=== PATIENT | male | born 1940 | race Caucasian/White ===

== ENCOUNTER 2018-05-11 20:44 | Inpatient (IN) | payer OTHER ==
[~2018-05-11] VITALS: Ht 175.3 cm; Wt 81.2 kg
[2018-05-11] MEDS ORDERED: SOD CHLORIDE 0.9% 1,000 ML IV STA (21:25)
--- NOTE | 2018-05-11 22:02 | ERD ---
ER Documentation Chief Complaint Chief Complaint PT BEGAN FALLING 2 WEEKS AGO; SEVERAL FALLS TODAY, HEAD/ NECK PAIN HPI 78-year-old man began having abrupt onset of loss of balance about 3 weeks ago, he is also had about 3 months of posterior neck pain. His loss of balance is daily and constant he has difficulty walking and has fallen multiple times, his PMD initially ordered x-ray studies but then the patient got a second opinion and recommendation was for outpatient MRI. MRI was scheduled today although he missed the appointment because he fell. Patient denies slurred speech, no weakness in his upper or lower extremities, no fevers or chills, no vomiting or diarrhea, no complaints of chest pain or shortness of breath. Patient had no URI or flu symptoms last month and has had no new medications, although he does use oxazepam and diazepam daily times 20 years ROS All systems reviewed and are negative except as per history of present illness. Allergies Allergies: Coded Allergies: No Known Allergy (Unverified , 05/11/18) PMhx/Soc Anxiety, hypertension, arthritis, ?COPD History of Surgery: Yes (left leg) Anesthesia Reaction: No Hx Neurological Disorder: No Hx Respiratory Disorders: No Hx Cardiac Disorders: Yes (HTN, Hyperlipidemia) Hx Psychiatric Problems: Yes (Anxiety, depression) Hx Miscellaneous Medical Probl: Yes (DM) Hx Alcohol Use: Yes (Occasional) Hx Substance Use: No Hx Tobacco Use: Yes Smoking Status: Current some day smoker FmHx Family History: No diabetes Physical Exam Vitals Vital Signs Date Temp Pulse Resp B/P (MAP) Pulse Ox O2 O2 Flow FiO2 Time Delivery Rate 05/11/18 63 16 127/72 99 Nasal 2.0 23:16 (90) Cannula 05/11/18 59 15 135/70 98 Nasal 2.0 22:21 (91) Cannula 05/11/18 83 16 138/74 95 Nasal 2.0 20:53 (95) Cannula 05/11/18 97.0 87 18 165/78 96 20:48 (107) Physical Exam GENERAL: Well-developed, well-nourished, appears dehydrated, afebrile HEENT: Dry mucous membranes, pink conjunctiva, no cervical spine tenderness or step-off deformities, no goiter, no jaundice or icterus, extraocular movements intact without pain. No submandibular induration, and no pharyngeal erythema NEURO: Alert and oriented 3, cranial nerves II through XII intact bilaterally, pupils equal round reactive to light, no focal deficits or facial asymmetry, gait not tested CARDIAC: Regular rate and rhythm, no murmurs rubs or gallops LUNGS: Clear bilaterally no wheezing crackles or stridor ABDOMEN: Soft nontender, no guarding, no rigidity, no rebound, no psoas sign no obturator sign. SKIN: Warm and dry to touch, no abrasions, contusions, or hematomas, no lacerations, no ecchymosis, no target lesions, and without ulcers EXTREMITIES: No clubbing cyanosis or edema, calves are bilaterally symmetrical, no Homans sign, no popliteal cord sign. Distal pulses equal and bilateral PSYCH: Normal affect without agitation or irritability Result Diagram: 05/11/18211305/11/182113 Results 24 hrs Laboratory Tests Test 05/11/18 21:14 05/11/18 22:00 White Blood Count 7.6 10^3/ul Red Blood Count 4.97 10^6/ul Hemoglobin 15.2 g/dl Hematocrit 45.2 % Mean Corpuscular Volume 90.9 fl Mean Corpuscular Hemoglobin 30.6 pg Mean Corpuscular Hemoglobin Concent 33.6 g/dl Red Cell Distribution Width 13.3 % Platelet Count 227 10^3/UL Mean Platelet Volume 9.7 fl Immature Granulocytes % 0.500 % Neutrophils % 61.6 % Lymphocytes % 25.9 % Monocytes % 9.1 % Eosinophils % 2.2 % Basophils % 0.7 % Nucleated Red Blood Cells % 0.0 /100WBC Immature Granulocytes # 0.040 10^3/ul Neutrophils # 4.7 10^3/ul Lymphocytes # 2.0 10^3/ul Monocytes # 0.7 10^3/ul Eosinophils # 0.2 10^3/ul Basophils # 0.1 10^3/ul Nucleated Red Blood Cells # 0.0 10^3/ul Sodium Level 138 mmol/L Potassium Level 3.6 mmol/L Chloride Level 98 mmol/L Carbon Dioxide Level 28 mmol/L Anion Gap 12 Blood Urea Nitrogen 23 mg/dl Creatinine 1.14 mg/dl Est Glomerular Filtrat Rate mL/min mL/min Glucose Level 182 mg/dl Calcium Level 9.6 mg/dl Total Bilirubin 0.2 mg/dl Direct Bilirubin 0.00 mg/dl Indirect Bilirubin 0.2 mg/dl Aspartate Amino Transf (AST/SGOT) 23 IU/L Alanine Aminotransferase (ALT/SGPT) 14 IU/L Alkaline Phosphatase 80 IU/L Troponin I < 0.012 ng/ml Total Protein 7.6 g/dl Albumin 4.2 g/dl Globulin 3.40 g/dl Albumin/Globulin Ratio 1.23 Lipase 98 U/L Vitamin B12 Level 533 pg/ml Ethyl Alcohol Level < 10.0 mg/dl Urine Color YELLOW Urine Clarity CLEAR Urine pH 5.0 Urine Specific [place] 1.023 Urine Ketones TRACE mg/dL Urine Nitrite NEGATIVE mg/dL Urine Bilirubin NEGATIVE mg/dL Urine Urobilinogen NEGATIVE mg/dL Urine Leukocyte Esterase NEGATIVE Sylvia/ul Urine Microscopic RBC 22 /HPF Urine Microscopic WBC 3 /HPF Urine Hemoglobin 1+ mg/dL Urine Glucose 3+ mg/dL Urine Total Protein 2+ mg/dl Current Medications Medications Dose Sig/Jesenia Start Time Status Last (Trade) Ordered Route PRN Stop Time Admin Dose Reason Admin Sodium 1,000 ml @ Q1H STAT 05/11/18 DC 05/11/18 Chloride 1,000 mls/hr IV 21:25 05/11/18 21:40 22:24 IV Flush 10 ml STK-MED 05/11/18 DC (NS 10 ml) ONCE .ROUTE 22:21 05/11/18 22:22 Sodium 100 ml @ ud STK-MED 05/11/18 DC Chloride ONCE .ROUTE 22:21 05/11/18 22:22 Iohexol 100 ml @ ud STK-MED 05/11/18 DC ONCE .ROUTE 22:21 05/11/18 22:22 Procedures/MDM IV line was established patient was placed on rn cardiac cath rhythm strip revealed a sinus rhythm at about 60 bpm with upright P and T waves. Patient was afebrile I administered 1 L normal saline IV for dehydration. CT scan of the brain was performed, IMPRESSION: 3.7 x 3.1 x 2.2 cm well-demarcated relatively hyperdense mass left cerebellar hemisphere with surrounding edema causing deformity and partial effacement of the fourth ventricle. Probable 5 mm hyperdense nodule left cerebral peduncle with questionable 7 mm nodule subcortical white matter left parietal lobe with edema. Findings likely represent evidence of metastatic disease. Correlation wit h pre and post contrast MRI is recommended for more definitive diagnosis. Underlying white matter disease with atrophy compatible with chronic small vessel ischemia. No intracranial hemorrhage. CT angiogram of the brain and neck was also ordered results are pending I will follow-up. EKG was performed, read by me revealed a sinus bradycardia 59 bpm, normal axis, right ventricular conduction delay QRS duration 110 ms, no concerning ST elevations or depressions noted CBC was normal, electrolytes revealed mild dehydration with a BUN/creatinine of 23/1.1, liver function tests are normal, coagulation profile normal, troponin negative I spoke to the neurosurgeon auction block clerk regarding the patient's presentation, symptomatology, CT scan findings and ED workup. He agreed to consult the patient in the morning and recommended metastasis screen with a CT scan of the chest, abdomen, pelvis without contrast and admission to telemetry setting. Patient will most likely require neurosurgical intervention Critical Care: Time: 43 minutes, this was time separate from other billable procedures. Treatments/Evaluations: Close monitoring and treatment of unstable vital signs, cardiorespiratory, and neurologic status, while maintaining tight balance of fluid, respiratory, and cardiac interventions. Patient was endorsed to his health insurance directed physician Dr. Wade who resumes care. MRI of the brain with and without contrast has been ordered from the ER. Departure Diagnosis: Primary Impression: Disequilibrium Additional Impressions: Acute dehydration Cerebellar mass Condition: MANSI Gold MD May 11, 2018 22:02
[2018-05-11] MEDS ORDERED: SOD CHLORIDE 0.9% 100 ML ONE (22:21)
[2018-05-11] MEDS ORDERED: IOHEXOL 100 ML ONE (22:21)
[2018-05-11] MEDS ORDERED: DIAZEPAM 5 MG TAB PO ONE (23:00)
[2018-05-11] MEDS ORDERED: ACETAMINOPHEN 325 MG TAB PO ONE (23:00)
[2018-05-11] MEDS ORDERED: PAROXETINE 20 MG TAB PO ONE (23:00)
[2018-05-11] MEDS ORDERED: PARO-37 PO (23:35)
[2018-05-11] MEDS ORDERED: METF-480 PO (23:35)
[2018-05-11] MEDS ORDERED: OXAZ30CA2 PO (23:35)
[2018-05-11] MEDS ORDERED: DIAZ5TAB4 PO (23:35)
[2018-05-11] MEDS ORDERED: SITA25TA3 PO (23:41)
[2018-05-11] MEDS ORDERED: PRAV80TA27 PO (23:45)
[2018-05-11] MEDS ORDERED: AMLO-147 PO (23:45)
[2018-05-11] MEDS ORDERED: LIPA1CAP6 PO (23:45)
[2018-05-12] VITALS (10 sets, daily range): BP systolic 110–149; BP diastolic 64–88; PULSE 51–93; RESP 17–20; Ht 175.3 cm; Wt 81.2 kg
[2018-05-12] MEDS ORDERED: morphine 2 MG INJ IV PRN (02:30)
[2018-05-12] MEDS ORDERED: DEXTROSE 50% 50 ML SYRINGE IV PRN ×2 (02:30)
[2018-05-12] MEDS ORDERED: GLUCAGON 1 MG INJ IM PRN (02:30)
[2018-05-12] MEDS ORDERED: GLUCOSE GEL 15 GRAM TUBE BUCCAL PRN (02:30)
[2018-05-12] MEDS ORDERED: GLUCOSE GEL 15 GRAM TUBE PO PRN ×2 (02:30)
[2018-05-12] MEDS: PANTOPRAZOLE (EC) 40 MG TAB PO SCH (06:21)
[2018-05-12] MEDS: DEXAMETHASONE 4 MG/ML 1 ML INJ IV SCH ×3 (06:21→18:27)
[2018-05-12] MEDS: CREON (24K-76K-120K) 1 CAP PO SCH ×3 (07:52→15:38)
[2018-05-12] MEDS: metFORMIN 850 MG TAB PO SCH (07:52)
[2018-05-12] MEDS: ACCU-CHEK XX SCH ×4 (08:11→20:26)
[2018-05-12] MEDS: AMLODIPINE 10 MG TAB PO SCH (08:12)
[2018-05-12] MEDS ORDERED: [UNRECOGNIZED DRUG - OTHER] XX SCH (08:30)
--- NOTE | 2018-05-12 09:57 | CONS ---
Assessment/Plan Assessment/Plan Assessment/Plan (Daily) Diagnoses: 1) Metastatic brain tumor 2) Brain edema Mr. 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 This case was discussed in detail with the patient, his daughter and the primary attending, Dr. Wade. - Biopsy of left lung mass - Dexamethasone - Brain MRI with/without contrast - Will decide on plan for brain metastases pending MRI and lung biopsy path Consultation Date/Type/Reason Admit Date/Time May 11, 2018 at 23:16 Date of Consultation: May 12, 2018 Type of Consult Neurosurgery Reason for Consultation Falls, brain mass Date/Time of Note DATE: 05/12/18 TIME: 09:49 Hx of Present Illness Mr. Saez is a 74 year old male with a history of smoking, who has had multiple falls over the past 3 weeks and neck pain over the past 2-3 months. He had 3 falls yesterday so his family brought him to the ED. He specifically has difficulty with balance when he stands up. He denies weakness or vision difficu lties. Past Medical History Home Meds Reported Medications Zejvti-Bpimxavi-Ijhovqx* (Elyse DR* 24,000) 24,000 L-76,000-120,000 Unit Capsule.dr, 1 CAP PO WITH MEALS, CAP 05/11/18 Amlodipine Besylate* (Amlodipine Besylate*) 10 Mg Tablet, 10 MG PO DAILY, #30 TAB 05/11/18 Pravastatin Sodium* (Pravastatin Sodium*) 80 Mg Tablet, 80 MG PO HS, TAB 05/11/18 Sitagliptin* (Januvia*) Unknown Strength Tablet, 0 PO DAILY, #30 TAB 05/11/18 Metformin* (Glucophage*) 850 Mg Tablet, 850 MG PO WITH BREAKFAST, #30 TAB 05/11/18 Paroxetine Hcl* (Paroxetine*) 20 Mg Tablet, 20 MG PO HS, TAB 05/11/18 Oxazepam* (Oxazepam*) 30 Mg Capsule, 30 MG PO Q8H PRN for ANXIETY, CAP 05/11/18 Diazepam* (Diazepam*) 5 Mg Tablet, 7.5 MG PO QHS, TAB 05/11/18 Medications Current Medications Amlodipine Besylate (Norvasc) 10 mg DAILY PO Last administered on 05/12/18at 08:12; Admin Dose 10 MG; Start 05/12/18 at 09:00 Diazepam (Valium) 7.5 mg QHS PO ; Start 05/12/18 at 21:00 Amylase/Lipase/ Protease (Creon ([id number])) 1 cap WITH MEALS PO ; Start 05/12/18 at 07:55 Metformin HCl (Glucophage) 850 mg WITH BREAKFAST PO ; Start 05/12/18 at 07:55 Miscellaneous Information 30 mg Q8H PRN PO ANXIETY; Start 05/12/18 at 02:00; Status UNV Atorvastatin Calcium (Lipitor) 40 mg DAILY@21 PO ; Start 05/12/18 at 21:00 Diagnostic Test (Pha) (Accu-Chek) 1 ea AC MEALS AND BEDTIME XX Last administered on 05/12/18at 08:11; Admin Dose 1 EA; Start 05/12/18 at 07:25 Paroxetine HCl (Paxil) 20 mg HS PO ; Start 05/12/18 at 21:00 Dexamethasone (Decadron) 4 mg Q6 IV Last administered on 05/12/18at 06:21; Admin Dose 4 MG; Start 05/12/18 at 06:00 Pantoprazole (Protonix Tab) 40 mg DAILY@06 PO Last administered on 05/12/18at 06:21; Admin Dose 40 MG; Start 05/12/18 at 06:00 Morphine Sulfate (morphine) 2 mg Q3 PRN IV SEVERE PAIN LEVEL 7-10; Start 05/12/18 at 02:30 Miscellaneous Information 1 ea NOTE XX ; Start 05/12/18 at 02:30 Glucose (Glutose) 15 gm Q15M PRN PO DECREASED GLUCOSE; Start 05/12/18 at 02:30 Glucose (Glutose) 22.5 gm Q15M PRN PO DECREASED GLUCOSE; Start 05/12/18 at 02:30 Dextrose (D50w Syringe) 25 ml Q15M PRN IV DECREASED GLUCOSE; Start 05/12/18 at 02:30 Dextrose (D50w Syringe) 50 ml Q15M PRN IV DECREASED GLUCOSE; Start 05/12/18 at 02:30 Glucagon (Glucagen) 1 mg Q15M PRN IM DECREASED GLUCOSE; Start 05/12/18 at 02:30 Glucose (Glutose) 15 gm Q15M PRN BUCCAL DECREASED GLUCOSE; Start 05/12/18 at 02:30 Miscellaneous Information (*Order Clarification Bulletin) MEDICATION REQUIRES CLARIFICATION: Q8H XX ; Start 05/12/18 at 08:30 Allergies: Coded Allergies: No Known Allergy (Unverified , 05/11/18) Social History Smoking Status: Current some day smoker Exam/Review of Systems Exam Vitals Vital Signs Date Temp Pulse Resp B/P (MAP) Pulse Ox O2 O2 Flow FiO2 Time Delivery Rate 05/12/18 56 08:11 05/12/18 Nasal 2.0 07:57 Cannula 05/12/18 98.2 20 133/64 96 07:26 (87) Intake and Output 05/11/18 05/11/18 05/12/18 1515:00 23:00 07:00 IntakeIntake Total 240 ml OutputOutput Total 400 ml BalanceBalance -160 ml Exam Alert/Oriented Speaks some Estonian 55 slight left dysmetria Results Result Diagram: 05/11/18211305/11/184 Results 24hrs Laboratory Tests Test 05/11/18 21:14 05/11/18 22:00 05/12/18 08:10 White Blood Count 7.6 Red Blood Count 4.97 Hemoglobin 15.2 Hematocrit 45.2 Mean Corpuscular Volume 90.9 Mean Corpuscular Hemoglobin 30.6 Mean Corpuscular Hemoglobin Concent 33.6 Red Cell Distribution Width 13.3 Platelet Count 227 Mean Platelet Volume 9.7 Immature Granulocytes % 0.500 H Neutrophils % 61.6 Lymphocytes % 25.9 Monocytes % 9.1 Eosinophils % 2.2 Basophils % 0.7 Nucleated Red Blood Cells % 0.0 Immature Granulocytes # 0.040 H Neutrophils # 4.7 Lymphocytes # 2.0 Monocytes # 0.7 Eosinophils # 0.2 Basophils # 0.1 Nucleated Red Blood Cells # 0.0 Sodium Level 138 Potassium Level 3.6 Chloride Level 98 Carbon Dioxide Level 28 Anion Gap 12 Blood Urea Nitrogen 23 H Creatinine 1.14 Est Glomerular Filtrat Rate mL/min Glucose Level 182 Calcium Level 9.6 Total Bilirubin 0.2 Direct Bilirubin 0.00 Indirect Bilirubin 0.2 Aspartate Amino Transf (AST/SGOT) 23 Alanine Aminotransferase (ALT/SGPT) 14 Alkaline Phosphatase 80 Troponin I < 0.012 Total Protein 7.6 Albumin 4.2 Globulin 3.40 H Albumin/Globulin Ratio 1.23 Lipase 98 Vitamin B12 Level 533 Ethyl Alcohol Level < 10.0 H Urine Color YELLOW Urine Clarity CLEAR Urine pH 5.0 Urine Specific [place] 1.023 Urine Ketones TRACE A Urine Nitrite NEGATIVE Urine Bilirubin NEGATIVE Urine Urobilinogen NEGATIVE Urine Leukocyte Esterase NEGATIVE Urine Microscopic RBC 22 H Urine Microscopic WBC 3 Urine Hemoglobin 1+ H Urine Glucose 3+ H Urine Total Protein 2+ H Bedside Glucose [address] Head demonstrates a 4cm left cerebellar mass and a subcentimeter left cerebral peduncle mass. CT Chest demonstrates a 6 cm left lung mass Medications Medication Current Medications Amlodipine Besylate (Norvasc) 10 mg DAILY PO Last administered on 05/12/18at 08:12; Admin Dose 10 MG; Start 05/12/18 at 09:00 Diazepam (Valium) 7.5 mg QHS PO ; Start 05/12/18 at 21:00 Amylase/Lipase/ Protease (Creon ([id number])) 1 cap WITH MEALS PO ; Start 05/12/18 at 07:55 Metformin HCl (Glucophage) 850 mg WITH BREAKFAST PO ; Start 05/12/18 at 07:55 Miscellaneous Information 30 mg Q8H PRN PO ANXIETY; Start 05/12/18 at 02:00; Status UNV Atorvastatin Calcium (Lipitor) 40 mg DAILY@21 PO ; Start 05/12/18 at 21:00 Diagnostic Test (Pha) (Accu-Chek) 1 ea AC MEALS AND BEDTIME XX Last administered on 05/12/18at 08:11; Admin Dose 1 EA; Start 05/12/18 at 07:25 Paroxetine HCl (Paxil) 20 mg HS PO ; Start 05/12/18 at 21:00 Dexamethasone (Decadron) 4 mg Q6 IV Last administered on 05/12/18at 06:21; Admin Dose 4 MG; Start 05/12/18 at 06:00 Pantoprazole (Protonix Tab) 40 mg DAILY@06 PO Last administered on 05/12/18at 06:21; Admin Dose 40 MG; Start 05/12/18 at 06:00 Morphine Sulfate (morphine) 2 mg Q3 PRN IV SEVERE PAIN LEVEL 7-10; Start 05/12/18 at 02:30 Miscellaneous Information 1 ea NOTE XX ; Start 05/12/18 at 02:30 Glucose (Glutose) 15 gm Q15M PRN PO DECREASED GLUCOSE; Start 05/12/18 at 02:30 Glucose (Glutose) 22.5 gm Q15M PRN PO DECREASED GLUCOSE; Start 05/12/18 at 02:30 Dextrose (D50w Syringe) 25 ml Q15M PRN IV DECREASED GLUCOSE; Start 05/12/18 at 02:30 Dextrose (D50w Syringe) 50 ml Q15M PRN IV DECREASED GLUCOSE; Start 05/12/18 at 02:30 Glucagon (Glucagen) 1 mg Q15M PRN IM DECREASED GLUCOSE; Start 05/12/18 at 02:30 Glucose (Glutose) 15 gm Q15M PRN BUCCAL DECREASED GLUCOSE; Start 05/12/18 at 02:30 Miscellaneous Information (*Order Clarification Bulletin) MEDICATION REQUIRES CLARIFICATION: Q8H XX ; Start 05/12/18 at 08:30 ELYSSA MARES MD May 12, 2018 09:57
--- NOTE | 2018-05-12 10:09 | RADRPT ---
Vent Rate: 50 bpm RR Interval: 0 msec WV Interval: 0 msec QRS Duration: 106 msec QT Interval: 448 msec QTC Interval: 408 msec P-R-T [place]: 70 - 40 - 88 degrees Sinus rhythm with 2nd degree AV block (Mobitz I) ST & T wave abnormality, consider lateral ischemia Abnormal ECG Electronically Signed By: Juventino Loyola
[2018-05-12] MEDS: IBUPROFEN 600 MG TAB PO SCH ×2 (12:52→20:24)
[2018-05-12] MEDS ORDERED: [UNRECOGNIZED DRUG - OTHER] PO PRN (13:00)
--- NOTE | 2018-05-12 13:28 | CONS ---
Assessment/Plan Assessment/Plan Hospital Course (Demo Recall) Ataxia Cerebral mass Mobitz type I with brief AV disassociation Systolic murmur concerning for aortic valve stenosis Tobacco use -Patient presents with ataxia and found to have a cerebral mass, as per the MRI, it is hemorrhagic. -Incidentally, on telemetry, patient with Mobitz type I. There was brief episodes of A-V dissociation occurring while sleeping lasting a few seconds. Denies any history of syncope. -The new diagnosis of metastasis is of utmost importance, patient plan for lung biopsy. -Would hold any AV jennifer blocking agents. Check echocardiogram Consultation Date/Type/Reason Admit Date/Time May 11, 2018 at 23:16 Type of Consult Cardiology Reason for Consultation Arrhythmia Date/Time of Note DATE: 05/12/18 TIME: 13:25 Hx of Present Illness This is a 78-year-old male history of tobacco use, systolic murmur who presents with feeling not well and problems with gait. 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 Patient admitted and on telemetry was found to have episodes of bradycardia and concern for ar rhythmia. He does admit to feeling off balance over the past few weeks. He denies any history of syncope, chest pain. He does smoke. 12 point review of systems was performed with all pertinent positives and negatives mentioned above and all else is negative Past Medical History Systolic murmur Home Meds Reported Medications Jtuafq-Gzehmdvx-Qzhlkhv* (Elyse SCHWARTZ* 24,000) 24,000 L-76,000-120,000 Unit Capsule.dr, 1 CAP PO WITH MEALS, CAP 05/11/18 Amlodipine Besylate* (Amlodipine Besylate*) 10 Mg Tablet, 10 MG PO DAILY, #30 TAB 05/11/18 Pravastatin Sodium* (Pravastatin Sodium*) 80 Mg Tablet, 80 MG PO HS, TAB 05/11/18 Sitagliptin* (Januvia*) Unknown Strength Tablet, 0 PO DAILY, #30 TAB 05/11/18 Metformin* (Glucophage*) 850 Mg Tablet, 850 MG PO WITH BREAKFAST, #30 TAB 05/11/18 Paroxetine Hcl* (Paroxetine*) 20 Mg Tablet, 20 MG PO HS, TAB 05/11/18 Oxazepam* (Oxazepam*) 30 Mg Capsule, 30 MG PO Q8H PRN for ANXIETY, CAP 05/11/18 Diazepam* (Diazepam*) 5 Mg Tablet, 7.5 MG PO QHS, TAB 05/11/18 Medications Current Medications Amlodipine Besylate (Norvasc) 10 mg DAILY PO Last administered on 05/12/18at 08:12; Admin Dose 10 MG; Start 05/12/18 at 09:00 Diazepam (Valium) 7.5 mg QHS PO ; Start 05/12/18 at 21:00 Amylase/Lipase/ Protease (Creon ([id number])) 1 cap WITH MEALS PO ; Start 05/12/18 at 07:55 Metformin HCl (Glucophage) 850 mg WITH BREAKFAST PO ; Start 05/12/18 at 07:55 Atorvastatin Calcium (Lipitor) 40 mg DAILY@21 PO ; Start 05/12/18 at 21:00 Diagnostic Test (Pha) (Accu-Chek) 1 ea AC MEALS AND BEDTIME XX Last administered on 05/12/18at 11:51; Admin Dose 1 EA; Start 05/12/18 at 07:25 Paroxetine HCl (Paxil) 20 mg HS PO ; Start 05/12/18 at 21:00 Dexamethasone (Decadron) 4 mg Q6 IV Last administered on 05/12/18at 12:52; Admin Dose 4 MG; Start 05/12/18 at 06:00 Pantoprazole (Protonix Tab) 40 mg DAILY@06 PO Last administered on 05/12/18at 06:21; Admin Dose 40 MG; Start 05/12/18 at 06:00 Morphine Sulfate (morphine) 2 mg Q3 PRN IV SEVERE PAIN LEVEL 7-10; Start 9 at 02:30 Miscellaneous Information 1 ea NOTE XX ; Start 05/12/18 at 02:30 Glucose (Glutose) 15 gm Q15M PRN PO DECREASED GLUCOSE; Start 05/12/18 at 02:30 Glucose (Glutose) 22.5 gm Q15M PRN PO DECREASED GLUCOSE; Start 05/12/18 at 02:30 Dextrose (D50w Syringe) 25 ml Q15M PRN IV DECREASED GLUCOSE; Start 05/12/18 at 02:30 Dextrose (D50w Syringe) 50 ml Q15M PRN IV DECREASED GLUCOSE; Start 05/12/18 at 0 2:30 Glucagon (Glucagen) 1 mg Q15M PRN IM DECREASED GLUCOSE; Start 05/12/18 at 02:30 Glucose (Glutose) 15 gm Q15M PRN BUCCAL DECREASED GLUCOSE; Start 05/12/18 at 02:30 Ibuprofen (Motrin) 600 mg TID PO Last administered on 05/12/18at 12:52; Admin Dose 600 MG; Start 05/12/18 at 13:00 Lorazepam (Ativan) 1 mg Q8 PO ; Start 05/12/18 at 14:00; Status UNV Patient Own Medication 1 ea Q8H PO ; Start 05/12/18 at 21:00; Status UNV Allergies: Coded Allergies: No Known Allergy (Unverified , 05/11/18) Family History Significant Family History: no pertinent family hx Social History Smoking Status: Current some day smoker Exam/Review of Systems Vital Signs Vitals Vital Signs Date Temp Pulse Resp B/P (MAP) Pulse Ox O2 O2 Flow FiO2 Time Delivery Rate 05/12/18 87 12:08 05/12/18 98.4 20 138/67 93 Room Air 11:53 (90) 05/12/18 2.0 07:57 Intake and Output 05/11/18 05/11/18 05/12/18 1515:00 23:00 07:00 IntakeIntake Total 240 ml OutputOutput Total 400 ml BalanceBalance -160 ml Exam Constitutional: alert, oriented (Family bedside, no apparent distress) Respiratory: other (Coarse breath sounds bilaterally, no wheezing) Cardiovascular: regular rate and rhythm, systolic murmur Gastrointestinal: soft, non-tender, bowel sounds Extremities: edema (Trace) Labs Result Diagram: 05/11/18211305/11/182113 Results 24hrs Laboratory Tests Test 05/11/18 21:14 05/11/18 22:00 05/12/18 08:10 05/12/18 11:47 White Blood Count 7.6 Red Blood Count 4.97 Hemoglobin 15.2 Hematocrit 45.2 Mean Corpuscular Volume 90.9 Mean Corpuscular 30.6 Hemoglobin Mean Corpuscular 33.6 Hemoglobin Concent Red Cell Distribution 13.3 Width Platelet Count 227 Mean Platelet Volume 9.7 Immature Granulocytes % 0.500 H Neutrophils % 61.6 Lymphocytes % 25.9 Monocytes % 9.1 Eosinophils % 2.2 Basophils % 0.7 Nucleated Red Blood 0.0 Cells % Immature Granulocytes # 0.040 H Neutrophils # 4.7 Lymphocytes # 2.0 Monocytes # 0.7 Eosinophils # 0.2 Basophils # 0.1 Nucleated Red Blood 0.0 Cells # Sodium Level 138 Potassium Level 3.6 Chloride Level 98 Carbon Dioxide Level 28 Anion Gap 12 Blood Urea Nitrogen 23 H Creatinine 1.14 Est Glomerular Filtrat Rate mL/min Glucose Level 182 Calcium Level 9.6 Total Bilirubin 0.2 Direct Bilirubin 0.00 Indirect Bilirubin 0.2 Aspartate Amino 23 Transf (AST/SGOT) Alanine 14 Aminotransferase (ALT/SG PT) Alkaline Phosphatase 80 Troponin I < 0.012 Total Protein 7.6 Albumin 4.2 Globulin 3.40 H Albumin/Globulin Ratio 1.23 Lipase 98 Vitamin B12 Level 533 Ethyl Alcohol Level < 10.0 H Urine Color YELLOW Urine Clarity CLEAR Urine pH 5.0 Urine Specific [place] 1.023 Urine Ketones TRACE A Urine Nitrite NEGATIVE Urine Bilirubin NEGATIVE Urine Urobilinogen NEGATIVE Urine Leukocyte Esterase NEGATIVE Urine Microscopic RBC 22 H Urine Microscopic WBC 3 Urine Hemoglobin 1+ H Urine Glucose 3+ H Urine Total Protein 2+ H Bedside Glucose 145 190 Medications Medications Current Medications Amlodipine Besylate (Norvasc) 10 mg DAILY PO Last administered on 05/12/18at 08:12; Admin Dose 10 MG; Start 05/12/18 at 09:00 Diazepam (Valium) 7.5 mg QHS PO ; Start 05/12/18 at 21:00 Amylase/Lipase/ Protease (Creon ([id number])) 1 cap WITH MEALS PO ; Start 05/12/18 at 07:55 Metformin HCl (Glucophage) 850 mg WITH BREAKFAST PO ; Start 05/12/18 at 07:55 Atorvastatin Calcium (Lipitor) 40 mg DAILY@21 PO ; Start 05/12/18 at 21:00 Diagnostic Test (Pha) (Accu-Chek) 1 ea AC MEALS AND BEDTIME XX Last administered on 05/12/18at 11:51; Admin Dose 1 EA; Start 05/12/18 at 07:25 Paroxetine HCl (Paxil) 20 mg HS PO ; Start 05/12/18 at 21:00 Dexamethasone (Decadron) 4 mg Q6 IV Last administered on 05/12/18at 12:52; Admin Dose 4 MG; Start 05/12/18 at 06:00 Pantoprazole (Protonix Tab) 40 mg DAILY@06 PO Last administered on 05/12/18at 06:21; Admin Dose 40 MG; Start 05/12/18 at 06:00 Morphine Sulfate (morphine) 2 mg Q3 PRN IV SEVERE PAIN LEVEL 7-10; Start 05/12 at 02:30 Miscellaneous Information 1 ea NOTE XX ; Start 05/12/18 at 02:30 Glucose (Glutose) 15 gm Q15M PRN PO DECREASED GLUCOSE; Start 05/12/18 at 02:30 Glucose (Glutose) 22.5 gm Q15M PRN PO DECREASED GLUCOSE; Start 05/12/18 at 02:30 Dextrose (D50w Syringe) 25 ml Q15M PRN IV DECREASED GLUCOSE; Start 05/12/18 at 02:30 Dextrose (D50w Syringe) 50 ml Q15M PRN IV DECREASED GLUCOSE; Start 05/12/18 at 02:30 Glucagon (Glucagen) 1 mg Q15M PRN IM DECREASED GLUCOSE; Start 05/12/18 at 02:30 Glucose (Glutose) 15 gm Q15M PRN BUCCAL DECREASED GLUCOSE; Start 05/12/18 at 02:30 Ibuprofen (Motrin) 600 mg TID PO Last administered on 05/12/18at 12:52; Admin Dose 600 MG; Start 05/12/18 at 13:00 Lorazepam (Ativan) 1 mg Q8 PO ; Start 05/12/18 at 14:00; Status UNV Patient Own Medication 1 ea Q8H PO ; Start 05/12/18 at 21:00; Status UNV Pieter Greene DO May 12, 2018 13:28
[2018-05-12] MEDS ORDERED: LORAZEPAM 1 MG TAB PO SCH (14:00)
--- NOTE | 2018-05-12 15:00 | HP ---
DATE OF ADMISSION: 05/11/2018 CHIEF COMPLAINT: Ataxia for 3 weeks. HISTORY OF PRESENT ILLNESS: A 78-year-old male with a history of heavy tobacco use, [facility] complaint of loss of balance and dysequilibrium for about 3 weeks prior to admission . The patient also reports a 3-month history of posterior neck pain. He had a fall episode on the d ay of admission with blunt head trauma. The patient underwent extensive imaging in the emergency maren m. CAT scan of the brain showed a 3.7 x 3.1 x 2.2 cm well-demarcated, relatively hyperdense mass in the left cerebellar hemisphere as well as a smaller, 5 mm, hyperdense nodule in the left peduncle. T his was found to be consistent with metastatic disease. Neurosurgical consultation was requested. C AT scan of the chest shows a 6 cm mass in the left lung with associated adenopathy. CAT scan of the abdomen and pelvis shows bilateral adrenal nodules versus metastatic disease as well as a soft tissue density in the bladder that may be consistent with malignancy. The patient denies any focal weaknes s or numbness. He denies any chest pain. Furthermore, he was found to have second-degree AV block. There was 1 episode of complete heart block during telemetry monitoring overnight. PAST MEDICAL HISTORY: 1. Hypertension. 2. Type 2 diabetes mellitus. 3. Anxiety disorder. 4. Chronic depression. 5. Hyperlipidemia. MEDICATIONS PRIOR TO ADMISSION: 1. Amlodipine. 2. Pravastatin. 3. Oxazepam 4. Paroxetine. 5. Creon. 6. Metformin. 7. Januvia. SOCIAL HISTORY: The patient lives at home. He admits to smoking about a pack of cigarettes per day. PHYSICAL EXAMINATION: GENERAL: Well-developed, well-nourished, elderly male who is in no apparent distress. He is alert a nd oriented. VITAL SIGNS: Stable. He is afebrile. HEENT: Mid forehead with ecchymosis. Extraocular muscles intact. Pupils are equal and reactive to light bilaterally. Sclerae are anicteric. Oropharynx is clear and moist. NECK: Supple, no JVD, no carotid bruits. LUNGS: Clear to auscultation bilaterally. CARDIAC: Regular rate and rhythm. No murmurs, rubs or gallops. ABDOMEN: Soft, nontender, nondistended. Normoactive bowel sounds. EXTREMITIES: No clubbing, cyanosis, or edema. NEUROLOGIC: The patient has clear evidence of ataxia. Motor and sensory are intact in all extremiti es. Cranial nerves II-XII are intact. LABORATORY DATA: White blood cell count 7.6, hemoglobin 15.2, platelet count is 227,000. Basic meta bolic panel is within normal limits. ASSESSMENT: 1. A 78-year-old male presenting with 2 weeks of ataxia. He is found to have a large left cerebella r mass which may represent metastatic disease. 2. Left lung mass, rule out malignancy. 3. Second-degree AV block with an episode of complete heart block during telemetry monitoring. 4. Hypertension 5. Type 2 diabetes mellitus. 6. Bilateral adrenal masses, rule out metastatic disease. 7. Soft tissue mass in the bladder. 8. Hypotension 9. Type 2 diabetes mellitus. 10. Anxiety disorder. PLAN: 1. Admit to telemetry. 2. Proceed with brain MRI. 3. CT-guided biopsy of lung mass. 4. A neurosurgical consultation was requested and case was discussed with Dr. Mix. 5. Cardiology consultation was also requested. 6. Resume selective home medications. Dictated By: AUGUSTO NGUYỄN/NTS Conf#: [id number] DID#: [id number] CC: AUGUSTO CALHOUN MD;*EndCC*
[2018-05-12] MEDS: PATIENT'S OWN MEDICATION PO SCH (18:41)
[2018-05-12] MEDS ORDERED: PAROXETINE 20 MG TAB PO SCH (21:00)
[2018-05-12] MEDS ORDERED: DIAZEPAM 5 MG TAB PO SCH (21:00)
[2018-05-12] MEDS ORDERED: ATORVASTATIN 40 MG TAB PO SCH (21:00)
[2018-05-13] VITALS (18 sets, daily range): BP systolic 124–177; BP diastolic 63–82; PULSE 72–99; RESP 18–25
[2018-05-13] MEDS: DEXAMETHASONE 4 MG/ML 1 ML INJ IV SCH ×4 (00:53→17:06)
[2018-05-13] MEDS ORDERED: INSULIN GLARGINE [LANTus] (100 UNITS/ML) SYG SC ONE (01:00)
[2018-05-13] MEDS ORDERED: PATIENT'S OWN MEDICATION PO SCH ×2 (06:00→12:00)
[2018-05-13] MEDS: PANTOPRAZOLE (EC) 40 MG TAB PO SCH (06:30)
[2018-05-13] MEDS: ACCU-CHEK XX SCH ×3 (07:25→17:06)
[2018-05-13] MEDS: CREON (24K-76K-120K) 1 CAP PO SCH ×3 (07:55→17:11)
[2018-05-13] MEDS: metFORMIN 850 MG TAB PO SCH (07:55)
[2018-05-13] MEDS: AMLODIPINE 10 MG TAB PO SCH ×2 (08:58→11:43)
[2018-05-13] MEDS: IBUPROFEN 600 MG TAB PO SCH ×2 (08:58→11:45)
[2018-05-13] MEDS ORDERED: LIDOCAINE 1% (MDV) 20 ML INJ ONE (09:11)
--- NOTE | 2018-05-13 09:48 | PREAC ---
Date/Time of Note Date/Time of Note DATE: 05/13/18 TIME: 09:45 Anesthesia Eval and Record Evaluation Time Pre-Procedure Interview DATE: 05/13/18 TIME: 09:45 Age 78 Sex male NPO: 8 hrs Preoperative diagnosis Cerebellar Mass, Lung Nodule Planned procedure Neck Lymph Node Biopsy Past Medical History Past Medical History: Includes Cardio: HTN, Dyslipidemia, CAD, Arrythmia (heart block) Endo: Diabetes Pulm: Smoking Hx, COPD Renal: CKD Psych: Depression Surgery & Anesthesia Issues No known issue Meds Anticoagulation: No Beta Shanell within 24 hr: No Reason Beta Shanell not given: Pt. not on B-Shanell Reported Medications Zftfnb-Slvznkxq-Auubdks* (Elyse DR* 24,000) 24,000 L-76,000-120,000 Unit Capsule., 1 CAP PO WITH MEALS, CAP 05/11/18 Amlodipine Besylate* (Amlodipine Besylate*) 10 Mg Tablet, 10 MG PO DAILY, #30 TAB 05/11/18 Pravastatin Sodium* (Pravastatin Sodium*) 80 Mg Tablet, 80 MG PO HS, TAB 05/11/18 Sitagliptin* (Januvia*) Unknown Strength Tablet, 0 PO DAILY, #30 TAB 05/11/18 Metformin* (Glucophage*) 850 Mg Tablet, 850 MG PO WITH BREAKFAST, #30 TAB 05/11/18 Paroxetine Hcl* (Paroxetine*) 20 Mg Tablet, 20 MG PO HS, TAB 05/11/18 Oxazepam* (Oxazepam*) 30 Mg Capsule, 30 MG PO Q8H PRN for ANXIETY, CAP 05/11/18 Diazepam* (Diazepam*) 5 Mg Tablet, 7.5 MG PO QHS, TAB 05/11/18 Current Medications Amlodipine Besylate (Norvasc) 10 mg DAILY PO Last administered on 05/12/18at 08:12; Admin Dose 10 MG; Start 05/12/18 at 09:00 Diazepam (Valium) 7.5 mg QHS PO Last administered on 05/12/18at 20:23; Admin Dose 7.5 MG; Start 05/12/18 at 21:00 Amylase/Lipase/ Protease (Creon ([id number]-226d)) 1 cap WITH MEALS PO ; Start 05/12/18 at 07:55 Metformin HCl (Glucophage) 850 mg WITH BREAKFAST PO ; Start 05/12/18 at 07:55 Atorvastatin Calcium (Lipitor) 40 mg DAILY@21 PO Last administered on 05/12/18 20:23; Admin Dose 40 MG; Start 05/12/18 at 21:00 Diagnostic Test (Pha) (Accu-Chek) 1 ea AC MEALS AND BEDTIME XX Last administered on 05/12/18 20:26; Admin Dose 1 EA; Start 05/12/18 at 07:25 Paroxetine HCl (Paxil) 20 mg HS PO Last administered on 05/12/18 20:24; Admin Dose 20 MG; Start 05/12/18 at 21:00 Dexamethasone (Decadron) 4 mg Q6 IV Last administered on 05/13/18 06:30; Admin Dose 4 MG; Start 05/12/18 at 06:00 Pantoprazole (Protonix Tab) 40 mg DAILY@06 PO Last administered on 05/13/18 06:30; Admin Dose 40 MG; Start 05/12/18 at 06:00 Morphine Sulfate (morphine) 2 mg Q3 PRN IV SEVERE PAIN LEVEL 7-10; Start 05/12/18 at 02:30 Miscellaneous Information 1 ea NOTE XX ; Start 05/12/18 at 02:30 Glucose (Glutose) 15 gm Q15M PRN PO DECREASED GLUCOSE; Start 05/12/18 at 02:30 Glucose (Glutose) 22.5 gm Q15M PRN PO DECREASED GLUCOSE; Start 05/12/18 at 02:30 Dextrose (D50w Syringe) 25 ml Q15M PRN IV DECREASED GLUCOSE; Start 05/12/18 at 02:30 Dextrose (D50w Syringe) 50 ml Q15M PRN IV DECREASED GLUCOSE; Start 05/12/18 at 02:30 Glucagon (Glucagen) 1 mg Q15M PRN IM DECREASED GLUCOSE; Start 05/12/18 at 02:30 Glucose (Glutose) 15 gm Q15M PRN BUCCAL DECREASED GLUCOSE; Start 05/12/18 at 02 :30 Ibuprofen (Motrin) 600 mg TID PO Last administered on 05/12/18at 20:24; Admin Dose 600 MG; Start 05/12/18 at 13:00 Patient Own Medication 1 ea 0600 PO Last administered on 05/13/18at 06:31; Admin Dose 1 EA; Start 05/13/18 at 06:00 Patient Own Medication 1 ea 1800 PO Last administered on 05/12/18at 18:41; Admin Dose 1 EA; Start 05/12/18 at 18:00 Patient Own Medication 1 ea 1200 PO ; Start 05/13/18 at 12:00 Hydralazine HCl (Apresoline) 10 mg Q6H PRN PO ELEVATED SYSTOLIC BP Last administered on 05/13/18at 00:53; Admin Dose 10 MG; Start 05/13/18 at 00:30 Meds reviewed: Yes Allergies Coded Allergies: No Known Allergy (Unverified , 05/11/18) Allergies Reviewed: Yes Labs/Studies Labs Reviewed: Reviewed by anesthesiologist Result Diagram: 05/11/18211305/11/182113 test: N/A Studies: ECG (2nd degree AV block) Pre-procedure Exam Last vitals Vital Signs Date Temp Pulse Resp B/P (MAP) Pulse Ox O2 O2 Flow FiO2 Time Delivery Rate 05/13/18 86 09:24 05/13/18 Nasal 2.0 08:01 Cannula 05/13/18 98.0 22 146/71 96 07:33 (96) Airway: Adequate mouth opening, Adequate thyromental dist Mallampati: Mallampati II Teeth: Normal Lung: Normal Heart: Normal ASA Physical Status ASA physical status: 4 Emergency: None Planned Anesthetic General/MAC: MAC Planned Pain Management Parenteral pain med Pre-operative Attestations Prior to commencing anesthesia and surgery, the patient was re-evaluated, there was verification of: *The patient's identity *The results of appropriate recent lab work and preoperative vital signs *The above evaluation not changing prior to induction *Anesthetic plan, risk benefits, alternative and complications discussed with patient/family; questions answered; patient/family understands, accepts and wishes to proceed. ANDRE COTTO MD May 13, 2018 09:48
[2018-05-13] MEDS ORDERED: OXYCODONE/ACETAMINOPHEN (5/325) TAB PO PRN (10:00)
[2018-05-13] MEDS ORDERED: ONDANSETRON 4 MG INJ IV PRN (10:00)
[2018-05-13] MEDS ORDERED: EPHEDrine SULFATE 50 MG/5 ML SYG IV PRN (10:00)
[2018-05-13] MEDS ORDERED: hydrALAzine 20 MG INJ IV PRN (10:00)
[2018-05-13] MEDS ORDERED: LABETALOL HCL 20MG INJ IV PRN (10:00)
[2018-05-13] MEDS ORDERED: FENTAnyl 50 MCG/ML VIAL IV PRN ×2 (10:00)
[2018-05-13] MEDS ORDERED: HYDROmorphONE 1 MG/5 ML IV SYRINGE IV PRN ×2 (10:00)
[2018-05-13] MEDS ORDERED: METOCLOPRAMIDE 10 MG INJ IV PRN (10:00)
--- NOTE | 2018-05-13 10:45 | HPN ---
Date/Time of Note Date/Time of Note DATE: 05/13/18 TIME: 10:45 Interval H&P Admission Note Pt. seen H&P reviewed: No system changes JO ANN SUE MD May 13, 2018 10:45
--- NOTE | 2018-05-13 10:51 | PAC ---
Date/Time of Note Date/Time of Note DATE: 05/13/18 TIME: 10:50 Post-Anesthesia Notes Post-Anesthesia Note Last documented vital signs Vital Signs Date Temp Pulse Resp B/P (MAP) Pulse Ox O2 O2 Flow FiO2 Time Delivery Rate 05/13/18 98.1 86 14 139/72(97) 99 NC 2L 10:47 05/13/18 Nasal 2.0 08:01 Cannula 05/13/18 98.0 22 146/71 96 07:33 (96) Activity: WNL Respiratory function: WNL Cardiovascular function: WNL Mental status: Baseline Pain reasonably controlled: Yes Hydration appropriate: Yes Nausea/Vomiting absent: Yes ANDRE COTTO MD May 13, 2018 10:51
[2018-05-13] MEDS ORDERED: PROPOFOL 40 ML ONE (10:55)
[2018-05-13] MEDS ORDERED: DEXS PO (11:59)
--- NOTE | 2018-05-13 12:01 | PDOCDIS ---
Discharge Instructions CONDITION [id number] Patient Condition: [id number] Good HOME CARE INSTRUCTIONS: [id number] Diet Instructions: [id number] Activity Restrictions: [id number] Do not operate Machinery FOLLOW UP/APPOINTMENTS Follow-up Plan pcp [address] Mix [address] Maya 1 week AUGUSTO CALHOUN MD May 13, 2018 12:01
--- NOTE | 2018-05-13 16:03 | RADRPT ---
Echocardiogram Report Patient Name: SHIRLEY TERRELLPatient ID: [id number] : 1940 (78y 3m)Study Date: 05/12/2018 1:52:50 PM Gender: MAccession #: [id number] Tech: Jenae [facility] Location: [address] Ref.Physician: PIETER GREENE Height(Cm): BSA: Weight(Kg): Quality: Technically Difficult StudyAccount #: Procedures: Echocardiographic Report: Transthoracic echocardiogram with complete 2D, M-Mode, and doppler examination. Indications: A.S. Measurements: 2D/M Mode Doppler Measurement Value Normal Range Measurement Value Normal Range LVIDd 2D 4.3 [ 4.2 - 5.8 ] cm FANNY VTI 0.6 [ 2.0 - 4.0 ] cm2 LVIDs 2D 2.9 [ 2.5 - 4.0 ] cm AV Mean Davis 3.1 [ 70.0 - 90.0 ] cm/sec LVPWd 2D 1.4 [ 0.6 - 1.0 ] cm AV Mean PG 47.0 [ 2.0 - 4.0 ] mmHg IVSd 2D 1.4 [ 0.6 - 1.0 ] cm AV VTI 98.8 cm AoR Diam 2D 2.7 [ 2.6 - 3.4 ] cm LVOT Mean Davis 0.6 [ 60.0 - 80.0 ] cm/sec EDV 2D 84.4 [ 62.0 - 150.0 ] ml LVOT Mean PG 2.0 [ 1.0 - 3.0 ] mmHg ESV 2D 33.0 [ 21.0 - 61.0 ] ml LVOT Peak Davis 0.8 [ 70.0 - 110.0 ] cm/sec EF 2D 60.9 [ 52.0 - 72.0 ] percent LVOT Peak PG 3.0 [ 2.0 - 6.0 ] mmHg LA Dimen 2D 4.3 [ 3.0 - 4.0 ] cm LVOT VTI 20.3 [ 20.0 - 30.0 ] cm LVOT Diam 2.0 [ 2.3 - 2.9 ] cm MV E Peak Davis 0.7 [ 60.0 - 130.0 ] cm/sec MV A Peak Davis 1.1 [ 100.0 - 120.0 ] cm/sec MV E/A 0.6 [ 0.8 - 1.5 ] ratio MV Decel Time 148 [ 104 - 258 ] msec Lat E` Davis 0.2 [ 10.0 - 15.0 ] cm/sec Lateral E/E` 4.3 [ 1.0 - 2.0 ] ratio MV E/A 0.6 [ 0.8 - 1.5 ] ratio TR Peak Davis 1.7 [ 100.0 - 280.0 ] cm/sec TR Peak PG 12.0 mmHg RVSP 15.0 [ 10.0 - 36.0 ] mmHg Findings: Left Ventricle: Normal left ventricular systolic function. Normal left ventricular cavity size. Moderate concentric left ventricular hypertrophy. Ejection fraction is visually estimated at 65 %. Tissue Doppler/Mitral Doppler indices are consistent with impaired relaxation (Stage I diastolic dysfunction). Right Ventricle: Normal right ventricular size. Normal right ventricular systolic function. Left Atrium: There is mild enlargement of left atrium. Right Atrium: The right atrium is normal in size. Mitral Valve: Mild mitral leaflet calcification. Mild mitral annular calcification. Trace mitral regurgitation. Aortic Valve: Severe aortic stenosis. Mean PG 47.00 mmHg. Aortic valve area 0.65 cm2. Aortic cusps appear severely calcified. Mild aortic valve regurgitation. Tricuspid Valve: Normal appearance of the tricuspid valve. Estimated peak PA systolic pressure 15 mmHg. There is trace tricuspid regurgitation. Pulmonic Valve: Normal pulmonic valve appearance. Pericardium: Trivial pericardial effusion. Aorta: Normal aortic root. IVC: Normal size and normal respiratory collapse consistent with normal right atrial pressure. Conclusions: Normal left ventricular systolic function. Normal left ventricular cavity size. Moderate concentric left ventricular hypertrophy. Ejection fraction is visually estimated at 65 %. Tissue Doppler/Mitral Doppler indices are consistent with impaired relaxation (Stage I diastolic dysfunction). Normal right ventricular size. Normal right ventricular systolic function. There is mild enlargement of left atrium. The right atrium is normal in size. Severe aortic stenosis. Mild aortic valve regurgitation. No significant valvular stenosis or regurgitation seen of remaining visualized valves. Trivial pericardial effusion. Electronically Signed By: Pieter Greene 2018-05-13 16:02:41 PDT
--- NOTE | 2018-05-13 16:31 | CONS ---
Assessment/Plan Assessment/Plan Hospital Course (Demo Recall) Ataxia Cerebral mass with concern for malignancy Mobitz type I Preserved ejection fraction Severe aortic valve stenosis Tobacco use -Echocardiogram with preserved ejection fraction, severe aortic valve stenosis. -Patient currently undergoing oncology workup and is status post biopsy. Treatment as per oncology -Telemetry reviewed with heart rate trend remained stable. No need for pacemaker at the current time. -No further inpatient cardiac workup needed at the current time. Consultation Date/Type/Reason Admit Date/Time May 11, 2018 at 23:16 Initial Consult Date 05/12/18 Type of Consult Cardiology Date/Time of Note DATE: 05/13/18 TIME: 16:29 24 HR Interval Summary Free Text/Dictation Denies chest pain, shortness of breath, palpitations Exam/Review of Systems Vital Signs Vitals Vital Signs Date Temp Pulse Resp B/P (MAP) Pulse Ox O2 O2 Flow FiO2 Time Delivery Rate 05/13/18 98.0 84 22 143/66 96 Room Air 16:10 (91) 05/13/18 2.0 08:01 Intake and Output 05/12/18 05/12/18 05/13/18 1515:00 23:00 07:00 IntakeIntake Total 720 ml 500 ml OutputOutput Total 1000 ml BalanceBalance 720 ml -500 ml Exam Constitutional: alert, oriented (No apparent distress) Respiratory: other (Coarse breath sounds bilaterally, no wheezing) Cardiovascular: regular rate and rhythm, systolic murmur Gastrointestinal: soft, non-tender, bowel sounds Extremities: other (No significant edema) Labs Result Diagram: 05/11/18211305/11/182113 Results 24hrs Laboratory Tests Test 05/12/18 20:25 05/13/18 02:05 05/13/18 07:20 05/13/18 11:30 Bedside Glucose 220 225 H 170 181 Medications Medications Current Medications Amlodipine Besylate (Norvasc) 10 mg DAILY PO Last administered on 05/13/18at 11:43; Admin Dose 10 MG; Start 05/12/18 at 09:00 Diazepam (Valium) 7.5 mg QHS PO Last administered on 05/12/18at 20:23; Admin Dose 7.5 MG; Start 05/12/18 at 21:00 Amylase/Lipase/ Protease (Creon (33m-56h-139v)) 1 cap WITH MEALS PO Last administered on 05/13/18 11:43; Admin Dose 1 CAP; Start 05/12/18 at 07:55 Metformin HCl (Glucophage) 850 mg WITH BREAKFAST PO ; Start 05/12/18 at 07:55 Atorvastatin Calcium (Lipitor) 40 mg DAILY@21 PO Last administered on 05/12/18 20:23; Admin Dose 40 MG; Start 05/12/18 at 21:00 Diagnostic Test (Pha) (Accu-Chek) 1 ea AC MEALS AND BEDTIME XX Last administered on 05/12/18 20:26; Admin Dose 1 EA; Start 05/12/18 at 07:25 Paroxetine HCl (Paxil) 20 mg HS PO Last administered on 05/12/18 20:24; Admin Dose 20 MG; Start 05/12/18 at 21:00 Dexamethasone (Decadron) 4 mg Q6 IV Last administered on 05/13/18 11:44; Admin Dose 4 MG; Start 05/12/18 at 06:00 Pantoprazole (Protonix Tab) 40 mg DAILY@06 PO Last administered on 05/13/18 06:30; Admin Dose 40 MG; Start 05/12/18 at 06:00 Morphine Sulfate (morphine) 2 mg Q3 PRN IV SEVERE PAIN LEVEL 7-10; Start 05/12/18 at 02:30 Miscellaneous Information 1 ea NOTE XX ; Start 05/12/18 at 02:30 Glucose (Glutose) 15 gm Q15M PRN PO DECREASED GLUCOSE; Start 05/12/18 at 02:30 Glucose (Glutose) 22.5 gm Q15M PRN PO DECREASED GLUCOSE; Start 05/12/18 at 02:30 Dextrose (D50w Syringe) 25 ml Q15M PRN IV DECREASED GLUCOSE; Start 05/12/18 at 02:30 Dextrose (D50w Syringe) 50 ml Q15M PRN IV DECREASED GLUCOSE; Start 05/12/18 at 02:30 Glucagon (Glucagen) 1 mg Q15M PRN IM DECREASED GLUCOSE; Start 05/12/18 at 02:30 Glucose (Glutose) 15 gm Q15M PRN BUCCAL DECREASED GLUCOSE; Start 05/12/18 at 02:30 Ibuprofen (Motrin) 600 mg TID PO Last administered on 05/13/18 11:45; Admin Dose 600 MG; Start 05/12/18 at 13:00 Patient Own Medication 1 ea 0600 PO Last administered on 05/13/18 06:31; Admin Dose 1 EA; Start 05/13/18 at 06:00 Patient Own Medication 1 ea 1800 PO Last administered on 05/12/18at 18:41; Admin Dose 1 EA; Start 05/12/18 at 18:00 Patient Own Medication 1 ea 1200 PO Last administered on 05/13/18at 11:44; Admin Dose 1 EA; Start 05/13/18 at 12:00 Hydralazine HCl (Apresoline) 10 mg Q6H PRN PO ELEVATED SYSTOLIC BP Last administered on 05/13/18 00:53; Admin Dose 10 MG; Start 05/13/18 at 00:30 Pieter Greene DO May 13, 2018 16:30
[2018-05-13] MEDS: PATIENT'S OWN MEDICATION PO SCH (17:23)
--- NOTE | 2018-05-14 09:40 | DS ---
DATE OF ADMISSION: 05/11/2018 DATE OF DISCHARGE: 05/13/2018 DISCHARGE DIAGNOSES: 1. A 78-year-old male with ataxia times several weeks. 2. Large left-sided lung mass, consistent with malignancy. 3. Diffuse cerebellar and cerebral lesions consistent with metastatic disease. 4. Long history of tobacco use. 5. Hypertension. 6. Anxiety disorder. 7. Type 2 diabetes mellitus. PROCEDURE DURING HOSPITALIZATION: 1. CT of the brain. 2. MRI of the brain. 3. CT-guided biopsy of right supraclavicular lymph node. HOSPITAL COURSE: A 78-year-old very pleasant male with long history of tobacco use, presented to [facility] with complaint of dysequilibrium for several weeks. Initial evaluation included CT of th e scan of the brain. This showed a 3.7 x 3.1 x 2.2 cm well-demarcated, relatively hyperdense mass in the left cerebellar hemisphere. The patient was seen in consultation by neurosurgeon, Dr. Mares. T he mass was consistent with metastatic disease. MRI of the brain showed contrast-enhanced hemorrhagi c mass within the left cerebellum resulting in sternal 4th ventricle. In addition to this mass, there were several other scattered foci which conta ins susceptibility artifact and consistent with diffuse metastatic disease. The lesion was hemorrhag ic. There was no indication for surgical intervention. Patient underwent biopsy of the supraclavicular lymph node by interventional radiology. I prescribed Decadron 4 mg twice daily. Additionally, patient was noted to have Mobic type 1 AV block. He was s een in consultation by Dr. Greene. AV node blockers need to be avoided. The patient remained stable during the hospitalization. He is a stable condition for discharge. Unfortunately, his overall pro gnosis is poor. This was discussed with patient and his daughter at the bedside. Patient is being r eferred to oncology, neurosurgery, and PCP as outpatient. walker was ordered. I also requeste d high school social studies teacher evaluation since patient will need home care. I strongly advised him against driving and operating machinery. Dictated By: AUGUSTO NGUYỄN/NTS Conf#: [id number] DID#: [id number] CC: DRAGAN GREENE DO; ELYSSA MARES MD;*EndCC*
== END 2018-05-13 19:00 | disposition home or self-care (01) | DRG 41 ==
LOC: E/R 20:44 → TEL 23:16
PROVIDERS: ADMIT Internal Medicine; ATTEND Internal Medicine
PROC: 07B53ZX Excision of Right Axillary Lymphatic, Percutaneous Approach, Diagnostic (ICD-10-PCS; principal; 2018-05-13)
DX: C79.31 Secondary malignant neoplasm of brain (principal); C34.92 Malignant neoplasm of unspecified part of left bronchus or lung; M19.90 Unspecified osteoarthritis, unspecified site; F41.9 Anxiety disorder, unspecified; I10 Essential (primary) hypertension; J44.9 Chronic obstructive pulmonary disease, unspecified; E78.5 Hyperlipidemia, unspecified; F32.9 Major depressive disorder, single episode, unspecified; F17.200 Nicotine dependence, unspecified, uncomplicated; I44.1 Atrioventricular block, second degree; I35.0 Nonrheumatic aortic (valve) stenosis; R27.0 Ataxia, unspecified; E11.9 Type 2 diabetes mellitus without complications; Z91.81 History of falling
CPT/HCPCS: 36415; 70450; 70496; 70498; 70551; 70553; 71045; 71250; 74176; 77012; 80053; 80307; 81001; 82607; 82962; 83690; 84484; 85025; 85610; 85730; 87086; 88307; 88313; 88341; 88342; 93005; 93306; J1100; J1815; J7030; Q9967

== ENCOUNTER 2018-06-05 14:30 | Observation (INO) | payer OTHER ==
[~2018-06-05] VITALS: Ht 172.7 cm; Wt 66.0 kg
[~2018-06-05 14:30] MED LIST: AMLO-147 PO; DEXS PO; LIPA1CAP6 PO; METF-480 PO; OXAZ30CA2 PO; PARO-37 PO; PRAV80TA27 PO; SITA25TA3 PO
[2018-06-05] MEDS ORDERED: SOD CHLORIDE 0.9% 1,000 ML IV STA (15:15)
[2018-06-05] MEDS ORDERED: SITAGLIPTIN PO (15:34)
[2018-06-05] MEDS ORDERED: METFORMIN PO (15:34)
[2018-06-05] MEDS ORDERED: LEVE500T8 PO (15:35)
[2018-06-05] MEDS ORDERED: EMPA10TA PO (15:35)
[2018-06-05] MEDS ORDERED: DIAZ5TAB4 PO (15:36)
[2018-06-05] MEDS ORDERED: DEXA4TAB PO (15:43)
[2018-06-05] MEDS ORDERED: ONDANSETRON 4 MG INJ IV PRN ×2 (18:30→21:00)
[2018-06-05] MEDS ORDERED: ACETAMINOPHEN 325 MG TAB PO PRN ×2 (18:30→21:00)
[2018-06-05] MEDS ORDERED: DEXTROSE 5%-0.9% NACL 1,000 ML IV SCH (19:00)
--- NOTE | 2018-06-05 19:19 | ERD ---
ER Documentation Chief Complaint Chief Complaint Difficulty swallowing, lethargy X 1.5 wks, Hx S4 lung CA with mets HPI Patient is a 78-year-old male with lung cancer, diabetes, and hypertension who presents with weight loss. The patient had a fall on May 31 and was diagnosed with lung cancer with metastases. He was admitted at that time. On Thursday was given an antiseizure medicine by his neurologist which was Keppra and since then is felt extremely fatigued. He is also on 4 mg of steroids twice a day. He has some sort of infection in his mouth per the family and has been getting fluconazole but is not getting better. He cannot swallow or eat and has lost weight over the past few days. ROS All systems reviewed and are negative except as per history of present illness. Medications Home Meds Reported Medications Dexamethasone* (Dexamethasone*) 4 Mg Tablet, 4 MG PO BID, TAB FOR 7 DAYS,STOP DATE 06/08/18 06/05/18 Diazepam* (Diazepam*) 5 Mg Tablet, 5 MG PO QHS, TAB 06/05/18 Levetiracetam* (Levetiracetam*) 500 Mg Tablet, 500 MG PO DAILY, TAB 06/05/18 Empagliflozin (Jardiance) 10 Mg Tablet, 10 MG PO QAM, TAB 06/05/18 [Janumet 50-850MG] No Conflict Check, 1 TAB PO BID 06/05/18 Paroxetine Hcl* (Paroxetine*) 20 Mg Tablet, 20 MG PO HS, TAB 05/11/18 Oxazepam* (Oxazepam*) 30 Mg Capsule, 30 MG PO Q8H PRN for ANXIETY, CAP THE ONLY MEDICATION, WICH HELPS HIM WELL. 05/11/18 Discontinued Reported Medications Yejotg-Zjvycxxj-Nqaskdj* (Elyse SCHWARTZ* 24,000) 24,000 L-76,000-120,000 Unit Capsule., 1 CAP PO WITH MEALS, CAP 05/11/18 Amlodipine Besylate* (Amlodipine Besylate*) 10 Mg Tablet, 10 MG PO DAILY, #30 TAB 05/11/18 Pravastatin Sodium* (Pravastatin Sodium*) 80 Mg Tablet, 80 MG PO HS, TAB 05/11/18 Sitagliptin* (Januvia*) Unknown Strength Tablet, 0 PO DAILY, #30 TAB 05/11/18 Metformin* (Glucophage*) 850 Mg Tablet, 850 MG PO WITH BREAKFAST, #30 TAB 05/11/18 Discontinued Scripts Dexamethasone* (Dexamethasone* Intensol) 1 Mg/Ml Soln, 4 MG PO BID for 14 Days, ML Prov:AUGUSTO WADE MD 05/13/18 Allergies Allergies: Coded Allergies: No Known Allergy (Unverified , 06/05/18) PMhx/Soc Medical and Surgical Hx: pt denies Medical Hx, pt denies Surgical Hx History of Surgery: Yes (Leg surgery L leg 40 years ago for injury) Anesthesia Reaction: No Hx Neurological Disorder: No Hx Respiratory Disorders: No Hx Cardiac Disorders: Yes (HTN, HLD) Hx Psychiatric Problems: Yes (Depression, anxiety) Hx Miscellaneous Medical Probl: No Hx Alcohol Use: No Hx Substance Use: No Hx Tobacco Use: Yes Smoking Status: Never smoker FmHx Family History: diabetes Physical Exam Vitals Vital Signs Date Temp Pulse Resp B/P (MAP) Pulse Ox O2 O2 Flow FiO2 Time Delivery Rate 06/05/18 78 16 123/54 Room Air 17:47 (77) 06/05/18 Nasal 2 15:21 Cannula 06/05/18 98.5 85 18 116/62 96 14:37 (80) Physical Exam Const: Moderate distress Head: Atraumatic Eyes: Normal Conjunctiva ENT: Oral lesions covering the tongue which appears to be aphthous stomatitis, dry mucous membranes Neck: Full range of motion. No meningismus. Resp: Clear to auscultation bilaterally Cardio: Regular rate and rhythm, no murmurs Abd: Soft, non tender, non distended. Normal bowel sounds Skin: No petechiae or rashes Back: No midline or flank tenderness Ext: No cyanosis, or edema Neur: Awake and alert Psych: Normal Mood and Affect Result Diagram: 06/05/18 1540 06/05/18 1540 Results 24 hrs Laboratory Tests Test 06/05/18 15:40 White Blood Count 15.8 10^3/ul Red Blood Count 5.16 10^6/ul Hemoglobin 15.9 g/dl Hematocrit 45.3 % Mean Corpuscular Volume 87.8 fl Mean Corpuscular Hemoglobin 30.8 pg Mean Corpuscular Hemoglobin Concent 35.1 g/dl Red Cell Distribution Width 13.2 % Platelet Count 168 10^3/UL Mean Platelet Volume 10.4 fl Immature Granulocytes % 1.800 % Neutrophils % 89.7 % Lymphocytes % 4.4 % Monocytes % 3.9 % Eosinophils % 0.1 % Basophils % 0.1 % Nucleated Red Blood Cells % 0.0 /100WBC Immature Granulocytes # 0.290 10^3/ul Neutrophils # 14.2 10^3/ul Lymphocytes # 0.7 10^3/ul Monocytes # 0.6 10^3/ul Eosinophils # 0.0 10^3/ul Basophils # 0.0 10^3/ul Nucleated Red Blood Cells # 0.0 10^3/ul Prothrombin Time 12.8 Sec Prothrombin Time Ratio 1.0 INR International Normalized Ratio 0.95 Activated Partial Thromboplast Time 21.3 Sec Sodium Level 133 mmol/L Potassium Level 4.4 mmol/L Chloride Level 101 mmol/L Carbon Dioxide Level 21 mmol/L Anion Gap 11 Blood Urea Nitrogen 49 mg/dl Creatinine 0.76 mg/dl Est Glomerular Filtrat Rate mL/min mL/min Glucose Level 279 mg/dl Hemoglobin A1c 8.8 % Calcium Level 10.1 mg/dl Troponin I < 0.012 ng/ml Triglycerides Level 278 mg/dl Cholesterol Level 228 mg/dl LDL Cholesterol, Calculated 137 mg/dl HDL Cholesterol 35 mg/dl Cholesterol/HDL Ratio 6.5 RATIO Current Medications Medications Dose Sig/Jesenia Start Time Status Last (Trade) Ordered Route PRN Stop Time Admin Dose Reason Admin Sodium 1,000 ml @ Q1H STAT 06/05/18 DC 06/05/18 Chloride 1,000 mls/hr IV 15:15 16:05 06/05/18 16:14 Procedures/MDM CT brain read by radiology. EKG read by me: Rate/Rhythm: Regular rate and rhythm at a normal rate Intervals: Normal Impression: No evidence of ischemia or arrhythmia Smoking Cessation Therapy: Pt. was lectured for greater than 3 minutes on the health risks of continued smoking and the benefits of cessation. Patient is a 78-year-old male who presents with dehydration and weight loss. His BUN and creatinine ratio is greater than 20 showing significant dehydration. I believe this is like related to the fact that he has significant intraoral lesions with pain in his having difficulty swallowing. The patient may require endoscopy as he has never had this as well. The patient was given 1 L of normal saline for fluid resuscitation. The patient will be admitted to the care of Dr. Wade as he has regal insurance. I doubt stroke at this time. Departure Diagnosis: Primary Impression: Dehydration Additional Impressions: Weakness Weight loss Condition: Fair NURYS VILLARREAL MD Jun 05, 2018 19:19
[2018-06-05 20:00] VITALS: BP 135/60; PULSE 68; RESP 18
[2018-06-05] MEDS ORDERED: morphine 2 MG INJ IV PRN (21:00)
[2018-06-05] MEDS ORDERED: DIAZEPAM 5 MG TAB PO SCH (21:00)
[2018-06-05] MEDS ORDERED: PAROXETINE 20 MG TAB PO SCH (21:00)
[2018-06-05 21:11] VITALS: Ht 172.7 cm; Wt 66.0 kg
[2018-06-05] MEDS ORDERED: GLUCAGON 1 MG INJ IM PRN (21:30)
[2018-06-05] MEDS ORDERED: DEXTROSE 50% 50 ML SYRINGE IV PRN ×2 (21:30)
[2018-06-05] MEDS ORDERED: GLUCOSE GEL 15 GRAM TUBE PO PRN ×2 (21:30)
[2018-06-05] MEDS ORDERED: GLUCOSE GEL 15 GRAM TUBE BUCCAL PRN (21:30)
[2018-06-05] MEDS: LEVETIRACETAM 500 MG TAB PO SCH (22:20)
[2018-06-05] MEDS: DEXAMETHASONE 4 MG TAB PO SCH (22:21)
[2018-06-05] MEDS: INSULIN ASPART [NOVOLOG] 3 ML PEN SC SCH (22:27)
[2018-06-06] MEDS ORDERED: ACCU-CHEK XX SCH (02:00)
[2018-06-06 02:30] VITALS: BP 135/64; PULSE 63; RESP 18
[2018-06-06] MEDS ORDERED: SOD CHLORIDE 0.9% 1,000 ML IV SCH (03:00)
[2018-06-06 07:41] VITALS: BP 143/66; PULSE 62; RESP 18
[2018-06-06] MEDS: DEXAMETHASONE 4 MG TAB PO SCH (08:10)
[2018-06-06] MEDS: INSULIN ASPART [NOVOLOG] 3 ML PEN SC SCH (08:14)
[2018-06-06] MEDS: LEVETIRACETAM 500 MG TAB PO SCH (08:17)
[2018-06-06] MEDS: OXAZEPAM 30 MG PO SCH ×2 (08:27→11:51)
[2018-06-06] MEDS ORDERED: FLUCONAZOLE 200 MG TAB PO SCH (09:00)
[2018-06-06] MEDS ORDERED: NYST1000 PO (09:32)
--- NOTE | 2018-06-06 09:33 | PDOCDIS ---
Discharge Instructions CONDITION [id number] Patient Condition: [id number] Fair HOME CARE INSTRUCTIONS: [id number] Your diet recommendation is: Oafkm0x diabetic soft ACTIVITY: [id number] Activity Restrictions: [id number] No Restrictions FOLLOW UP/APPOINTMENTS Follow-up Plan pcp 1 week Radiation oncology 1 week AUGUSTO CALHOUN MD Jun 06, 2018 09:33
--- NOTE | 2018-06-06 11:16 | HP ---
DATE OF ADMISSION: 06/05/2018 CHIEF COMPLAINT: Difficulty swallowing and pain in the mouth. HISTORY OF PRESENT ILLNESS: A 78-year-old male with metastatic lung cancer diagnosed several weeks p rior to admission, presented to emergency room with complaint of burning sensation throughout the delfin th and difficulty swallowing. Patient was diagnosed with stomatitis as outpatient and started on Dif lucan. He is able to swallow liquid and tolerate a soft diet. He denies any fevers or chills. The patient has noted significant weight loss. He was evaluated by oncology and radiation oncology as ou tpatient. Patient is not in a candidate for any type of treatment at this time. Initial evaluation revealed evidence of dehydration with BUN of 49 and creatinine of 0.76. White blood cell count was 1 5.8, hemoglobin of 15.9. PAST MEDICAL HISTORY: 1. Lung cancer with metastasis to the brain. 2. Ataxia. 3. Type 2 diabetes mellitus. 4. Recent history of stomatitis. 5. Chronic depression. 6. Anxiety disorder. SOCIAL HISTORY: The patient has a long history of tobacco use. PHYSICAL EXAMINATION: GENERAL: Well-developed, well-nourished male who is in no apparent distress. VITAL SIGNS: Stable. He is afebrile. HEENT: Extraocular muscles intact. Pupils equal and reactive to light bilaterally. Sclerae are ani cteric. Oropharynx is with no evidence of ulceration. No thrush noted. NECK: Supple. LUNGS: Bilateral rhonchi. CARDIAC: Regular rate and rhythm. No murmurs or gallops. ABDOMEN: Soft, nontender, nondistended, normoactive bowel sounds. EXTREMITIES: No clubbing, cyanosis, or edema. NEUROLOGICAL: Nonfocal. ASSESSMENT: 1. A 78-year-old male with widely metastatic lung cancer. 2. Stomatitis. 3. Dehydration. 4. Type 2 diabetes mellitus. 5. Chronic depression. 6. Anxiety disorder. 7. DNR code status. This was discussed with patient at length with the patient at the bedside in pr esence of his daughter. He agreed with a DNR. PLAN: Place in Med/Surg observation, resume home medications, IV fluid hydration. Discharge plannin g to home. I recommend the nystatin swish and swallow. Dictated By: AUGUSTO NGUYỄN/KODAK Conf#: [id number] [facility]#: [id number]
--- NOTE | 2018-06-06 17:22 | DS ---
DATE OF ADMISSION: 06/05/2018 DATE OF DISCHARGE: 06/06/2018 DISCHARGE DIAGNOSES: 1. Widely metastatic lung cancer. 2. Stomatitis. 3. Dehydration. 4. Type 2 diabetes mellitus. 5. Chronic depression. 6. Anxiety disorder. HOSPITAL COURSE: Please refer to history and physical for full detail. Briefly, a 78-year-old male with recently diagnosed lung cancer, widely metastasized to the brain, presented with complaint of bu rning sensation in the mouth and difficulty swallowing. The patient was diagnosed with stomatitis as outpatient. He was clinically dehydrated. The patient received IV fluid hydration. I prescribed n ystatin swish and swallow. The patient agreed to a DNR code status. He is not receiving any type of chemotherapy or radiation therapy due to his comorbidities and deconditioned state. The patient sher l follow up with his PCP and radiation oncologist as outpatient. Dictated By: AUGUSTO NGUYỄN/KODAK Conf#: [id number] DID#: [id number]
== END 2018-06-06 12:10 | disposition home or self-care (01) ==
LOC: E/R 14:30 → 2NE 18:06
PROVIDERS: ADMIT Internal Medicine; ATTEND Internal Medicine
DX: C34.90 Malignant neoplasm of unspecified part of unspecified bronchus or lung (principal); C79.31 Secondary malignant neoplasm of brain; K12.1 Other forms of stomatitis; E86.0 Dehydration; E11.9 Type 2 diabetes mellitus without complications; F32.9 Major depressive disorder, single episode, unspecified; I10 Essential (primary) hypertension; E78.5 Hyperlipidemia, unspecified; F41.9 Anxiety disorder, unspecified; Z79.84 Long term (current) use of oral hypoglycemic drugs; Z66 Do not resuscitate
CPT/HCPCS: 36415; 70450; 71045; 80048; 80061; 82962; 83036; 84484; 85025; 85610; 85730; 93005; J1815; J7030; J7042; Z7500; Z7502; Z7610; G0378

== ENCOUNTER 2018-06-09 07:38 | Emergency (ER) | payer OTHER ==
[~2018-06-09] VITALS: Ht 170.2 cm; Wt 80.0 kg
[~2018-06-09 07:38] MED LIST changes: -AMLO-147 PO; -DEXS PO; +EMPA10TA PO; +LEVE500T8 PO; -LIPA1CAP6 PO; -METF-480 PO; +METFORMIN PO; +NYST1000 PO; -PRAV80TA27 PO; -SITA25TA3 PO; +SITAGLIPTIN PO
[2018-06-09 07:43] VITALS: Ht 170.2 cm; Wt 80.0 kg
[2018-06-09] MEDS ORDERED: DIPHTH/TET/ACEL PERTUSS (ADULT) 0.5 ML VIAL IM* ONE (08:00)
--- NOTE | 2018-06-09 08:01 | ERD ---
ER Documentation Chief Complaint Chief Complaint pain on head, neck s/p mechanical fall ground level, denied loc, denies vom HPI 78-year-old male history of metastatic lung cancer presents to the ED via rescue ambulance for evaluation of a mechanical fall at home. Approximately 2:30 AM patient was walking in his house when he tripped and fell hitting his head but denies loss of consciousness. He complains of mild headache but denies visual changes, focal weakness or numbness. Mild sharp, nonradiating neck pain exacerbated by movement. Denies chest pain, palpitations, shortness of breath or cough. No abdominal pain, nausea vomiting. No fevers or chills. ROS All systems reviewed and are negative except as per history of present illness. Medications Home Meds Active Scripts Nystatin (Nystatin) 100,000 Unit/1 Ml Oral.susp, 2 ML PO QID for 7 Days, #60 ML Prov:AUGUSTO CALHOUN MD 06/06/18 Reported Medications Levetiracetam* (Levetiracetam*) 500 Mg Tablet, 500 MG PO DAILY, TAB 06/05/18 Empagliflozin (Jardiance) 10 Mg Tablet, 10 MG PO QAM, TAB 06/05/18 Paroxetine Hcl* (Paroxetine*) 20 Mg Tablet, 20 MG PO HS, TAB 05/11/18 Oxazepam* (Oxazepam*) 30 Mg Capsule, 30 MG PO Q8H PRN for ANXIETY, CAP THE ONLY MEDICATION, WICH HELPS HIM WELL. 05/11/18 Discontinued Reported Medications [Janumet 50-850MG] No Conflict Check, 1 TAB PO BID 06/05/18 Dexamethasone* (Dexamethasone*) 4 Mg Tablet, 4 MG PO BID, TAB FOR 7 DAYS,STOP DATE 06/08/18 06/05/18 Diazepam* (Diazepam*) 5 Mg Tablet, 5 MG PO QHS, TAB 06/05/18 Jrzqry-Xkxdehus-Cgcczsq* (Elyse SCHWARTZ* 24,000) 24,000 L-76,000-120,000 Unit Capsule., 1 CAP PO WITH MEALS, CAP 05/11/18 Amlodipine Besylate* (Amlodipine Besylate*) 10 Mg Tablet, 10 MG PO DAILY, #30 TAB 05/11/18 Pravastatin Sodium* (Pravastatin Sodium*) 80 Mg Tablet, 80 MG PO HS, TAB 05/11/18 Sitagliptin* (Januvia*) Unknown Strength Tablet, 0 PO DAILY, #30 TAB 05/11/18 Metformin* (Glucophage*) 850 Mg Tablet, 850 MG PO WITH BREAKFAST, #30 TAB 05/11/18 Discontinued Scripts Dexamethasone* (Dexamethasone* Intensol) 1 Mg/Ml Soln, 4 MG PO BID for 14 Days, ML Prov:AUGUSTO CALHOUN MD 05/13/18 Allergies Allergies: Coded Allergies: No Known Allergy (Unverified , 06/09/18) PMhx/Soc Reviewed in chart. As per HPI. History of Surgery: Yes (left leg surgery long time ago.) Anesthesia Reaction: No Hx Neurological Disorder: No Hx Respiratory Disorders: No Hx Cardiac Disorders: Yes (htn, hyperlipidemia) Hx Psychiatric Problems: Yes (depression, anxiety) Hx Miscellaneous Medical Probl: Yes (brain ca) Hx Alcohol Use: No Hx Substance Use: No Hx Tobacco Use: Yes Smoking Status: Current some day smoker FmHx No family history relevant to presenting complaint. Physical Exam Vitals Vital Signs Date Temp Pulse Resp B/P (MAP) Pulse Ox O2 O2 Flow FiO2 Time Delivery Rate 06/09/18 70 22 106/35 98 Room Air 12:00 (58) 06/09/18 64 16 133/61 98 Room Air 10:00 (85) 06/09/18 76 16 131/66 98 Room Air 09:00 (87) 06/09/18 77 18 109/52 95 Room Air 07:43 (71) 06/09/18 98.4 72 16 109/52 95 07:43 (71) Physical Exam Const: Ill-appearing, mild distress Head: Superficial upper midline forehead abrasion. No tenderness. No bleeding. Eyes: Pupils equal react to light, extraocular movements are intact. Normal Conjunctiva ENT: Normal External Ears, Nose and Mouth. Hemotympanum, negative escalera sign. Neck: Full range of motion. Mild generalized posterior midline and paraspinal tenderness. No step-off or deformity. Resp: Sounds are equal bilaterally with scattered rhonchi Cardio: Regular rate and rhythm, no murmurs Abd: Soft, non tender, non distended. Rebound or guarding. No masses or abnormal pulsations. Normal bowel sounds Skin: No petechiae or rashes Back: No midline or flank tenderness Ext: No cyanosis, or edema Neur: Awake and alert. Cranial nerves II through XII are grossly intact. No focal deficit. Psych: Normal Mood and Affect Result Diagram: 06/09/18 0808 06/09/18 0808 Results 24 hrs Laboratory Tests Test 06/09/18 08:08 White Blood Count 7.9 10^3/ul Red Blood Count 4.89 10^6/ul Hemoglobin 15.0 g/dl Hematocrit 44.0 % Mean Corpuscular Volume 90.0 fl Mean Corpuscular Hemoglobin 30.7 pg Mean Corpuscular Hemoglobin Concent 34.1 g/dl Red Cell Distribution Width 13.5 % Platelet Count 124 10^3/UL Mean Platelet Volume 9.6 fl Immature Granulocytes % 1.900 % Neutrophils % 81.0 % Lymphocytes % 10.3 % Monocytes % 5.4 % Eosinophils % 1.0 % Basophils % 0.4 % Nucleated Red Blood Cells % 0.0 /100WBC Immature Granulocytes # 0.150 10^3/ul Neutrophils # 6.4 10^3/ul Lymphocytes # 0.8 10^3/ul Monocytes # 0.4 10^3/ul Eosinophils # 0.1 10^3/ul Basophils # 0.0 10^3/ul Nucleated Red Blood Cells # 0.0 10^3/ul Sodium Level 136 mmol/L Potassium Level 3.9 mmol/L Chloride Level 100 mmol/L Carbon Dioxide Level 30 mmol/L Anion Gap 6 Blood Urea Nitrogen 24 mg/dl Creatinine 0.74 mg/dl Est Glomerular Filtrat Rate mL/min mL/min Glucose Level 187 mg/dl Calcium Level 9.0 mg/dl Current Medications Medications Dose Sig/Jesenia Start Time Status Last (Trade) Ordered Route PRN Stop Time Admin Dose Reason Admin Diphtheria/ 0.5 ml ONCE ONCE 06/09/18 DC 06/09/18 Tetanus/Acell IM* 08:00 06/09/18 08:28 Pertussis 08:01 (Adacel) Lactated 1,000 ml @ Q1H STAT 06/09/18 DC 06/09/18 Ringer's 1,000 mls/hr IV 09:05 06/09/18 09:42 10:04 Procedures/MDM DOCUMENTS REVIEWED: ED nurse, IBD, prior records LAB INTERPRETATION: CBC significant for mild thrombocytopenia but no l eukocytosis or anemia. Chemistry negative for electrolyte abnormalities or acute renal insufficiency. IMAGING: PROCEDURE: CT Brain without contrast. CLINICAL INDICATION: Pain status post trauma TECHNIQUE: A CT of the brain was performed on a [employer] CT scanner utilizing axial imaging from the skull base through the vertex without IV contrast. Multiplanar reformatted images were made. Images were reviewed on a PACS workstation. The CTDIvol is 35.92 mGy and the DLP is 634.23 mGycm. DICOM images are available. One of the following 3 dose reduction techniques were used during this CT examination: 1) Automated exposure control 2) Adjustment of the mA +/- kV according to patient size or 3) Use of iterative reconstruction technique COMPARISON: CT brain 06/05/2018 and MR brain 05/12/2018 FINDINGS: Apparent interval increase in the size of the previously noted left heterogeneous move and peripherally hyper dense cerebellar mass. Current dimensions are approximately 3.1 cm AP by 3.6 cm transverse by 2.1 cm in superior inferior dimensions. This has both cystic or necrotic as well as solid components. Increased mass effect on the left side of the fourth ventricle is noted with surrounding vasogenic edema. An additional left parietal lobe mass measuring approximately 11 mm in transverse dimensions is also noted with surrounding vasogenic edema in the left parietal and periatrial white matter. Stable appearance to the mild hydrocephalus is noted. These lesions are most compatible with metastatic disease. The ventricles sulci and cisterns are age appropriate compatible with mild diffuse volume loss. Subtle decreased attenuation is noted in the bilateral subcortical white matter, centrum semiovale and periventricular white matter compatible with mild chronic microvascular ischemic disease. Subtle widening and edema is noted in the left cerebral peduncle and subtle focus of edema in the left frontal white matter. These are suspicious for additional metastases. No definite midline shift or herniation is present. Mild vascular calcifications are present of the intracranial internal carotid arteries. The visualized scalp and calvarium demonstrates a small left frontal scalp hematoma without underlying fractures. The bilateral orbits are normal with sequela of prior lens replacement. The bilateral paranasal sinuses, mastoid air cells and middle ear cavities are clear. IMPRESSION: 1. Mild interval increase size in the heterogeneous, peripherally hyperdense left cerebellar mass with approximate dimensions of 3.1 cm AP by 3.6 cm transverse by 2.1 cm in superior inferior dimensions compatible with metastatic disease 2. Mild increased mass effect on the left side of the fourth ventricle with mild hydrocephalus 3. Left parietal 11 mm mass with surrounding vasogenic edema also compatible with additional metastasis not significantly changed from prior study. 4. Suspected additional metastases in the left frontal deep white matter and the left cerebral peduncle. 5. No evidence for herniation at this time. RPTAT: HDC .Diandra Olivares MD, MD Date Time Electronically viewed and signed by .Diandra Olivares MD, on 06/09/2018 08:38 .C/ PROCEDURE: CT Cervical Spine. CLINICAL INDICATION: Traumatic injury TECHNIQUE: Thin-section axial CT images of the cervical spine obtained without intravenous contrast. Sagittal and coronal reformatted images constructed from the axial data set. CTDIvol: 22.13 mGy DLP: 435.50 mGycm. DICOM images are available. One or more of the following dose reduction techniques were utilized: 1.) Automated exposure control 2.) Adjustment of the mA +/- kV according to patient's size 3.) Use of iterative reconstruction technique. COMPARISON: CTA neck 05/11/2018. FINDINGS: There is no evidence of an acute fracture. The dens is intact. Craniocervical junction is appropriately aligned. No static subluxations and no significant widening of interspinous spaces. Facet joints are appropriately aligned. There is anterior marginal spurring from C2-3 through C7-T1. A large posterior osteophyte at C4-5 produces moderate bony central canal stenosis. There is moderate disc degeneration at C5-6 with associated disc osteophyte ridging which mildly narrows the central canal and produces moderate bilateral foraminal stenosis. Prevertebral soft tissues are unremarkable. Emphysematous changes noted at the lung apices. Atherosclerotic calcifications present at the bilateral carotid bifurcations. A 3.5 cm hyperdense left cerebellar mass is noted. IMPRESSION: 1. Negative for fracture or acute malalignment. 2. Degenerative marginal spurring throughout the cervical spine. Large posterior osteophyte and moderate central canal stenosis at C4-5. 3. Disc osteophyte ridging and mild central canal stenosis at C5-6. 4. Emphysema. 5. Carotid atherosclerosis. 6. Hyperdense left cerebellar mass correlates with lesion identified on contemporaneous head CT. RPTAT: [facility] Physician Logan Date Time Electronically viewed and signed by Physician Logan on 06/09/2018 09:10 xB/ MEDICAL DECISION MAKIN-year-old male history of metastatic lung cancer presents to the ED via rescue ambulance for evaluation of a mechanical fall at home. CT of the brain to evaluate for intracranial hemorrhage reveals worsening intracranial mass with vasogenic edema and mass-effect consistent with prior diagnosis of metastatic cancer no acute hemorrhage. CT of the cervical spine is negative for acute fracture or subluxation. Patient sustained a closed head injury and forehead abrasion from a mechanical fall there is no syncope loss of consciousness. Patient with terminal, metastatic cancer. Palliative care consult in the ED. Placement arranged at [facility]. Stable for discharge with precautionary instructions and outpatient follow-up as counseled. CALLS/CONSULTATIONS: Time: 08:35. Dr Calhoun. Will arrange for placement and consult Dr. Mauro for palliative care. Counseled patient and family regarding diagnostic workup, diagnosis and need for followup. Understands to return to ED if symptoms recur, worsen or any other concerns. Departure Diagnosis: Primary Impression: Fall at home Encounter type: initial encounter Qualified Codes: W19.XXXA - Unspecified fall, initial encounter; Y92.009 - Unspecified place in unspecified non-institutional (private) residence as the place of occurrence of the external cause Additional Impressions: Closed head injury without loss of consciousness Encounter type: initial encounter Qualified Codes: S09.90XA - Unspecified injury of head, initial encounter Cervical strain, acute Encounter type: initial encounter Qualified Codes: S16.1XXA - Strain of muscle, fascia and tendon at neck level, initial encounter Dehydration Metastatic lung cancer (metastasis from lung to other site) Laterality: unspecified laterality Qualified Codes: C34.90 - Malignant neoplasm of unspecified part of unspecified bronchus or lung Forehead abrasion Encounter type: initial encounter Qualified Codes: S00.81XA - Abrasion of other part of head, initial encounter Condition: Stable ALEXA AGGARWAL MD June 09, 2018 08:01
[2018-06-09] MEDS ORDERED: LACTATED RINGER'S 1,000 ML IV STA (09:05)
--- NOTE | 2018-06-09 14:10 | CONS ---
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 He is the voice for family members. There is a brother who is away from the hospital right now trying to find fdc facilities. Family has a clear under standing of his underlying medical conditions however seemed very surprised that I said that he may have been more than 2 weeks of life left. There hopes that he does not take suffer. Their fears and concerns were addressed primarily suffering at end-of-life and pain out of control there were no cultural or communication issues that needs to be addressed at the time family seem well informed of his untreatable medical condition. Goals of care that I am in agreement with this at patient is no longer a candidate for aggressive intervention secondary to ECOG scores in his physical performance status. His estimated prognosis in my opinion is 2 weeks at the most 1 month. Recommendations are for hospice care symptom management will be addressed with hospice there were no psychological social or spiritual issues that need to be addressed at the time ethical or legal issues CODE STATUS to be addressed with hospice since patient is family can by law keep patient is a full code. Consultation Date/Type/Reason Admit Date/Time Date/Time of Note DATE: 06/09/18 TIME: 14:01 Hx of Present Illness Palliative care visit for this 70-year-old gentleman who has a history of metastatic lung cancer with mets to the brain. All information is taken from patient's current medical records and speaking with his daughter and in part from patient himself. Patient had a mechanical fall tripping and hitting his head without loss of consciousness without dizziness diplopia disorientation without tonic-clonic seizure activity and brought to the emergency room in the emergency room he went through diagnostic evaluation there were no major neurological findings because of patient's history of lung cancer he underwent a CT scan of his brain which shows mild interval increase in heterogeneous peripherally hyperdense left cerebellar mass with approximately dimensions of 3.1 cm x 3.6 cm x 2.1 cm inferior dimensions compatible with metastatic disease. #2 mild increased mass-effect on the left side of his fourth ventricle with mild hydrocephalus #3 left parietal 11 mm mass with surrounding vasogenic edema also compatible with additional additional metastatic disease not significantly changed from prior study #4 suspected additional metastatic disease in the frontal deep white matter and left cerebral cerebral peduncle. #5 no evidence of herniation at this time. Patient has no complaints at this time of nausea vomiting disease type likely disorientation true vertigo nuchal rigidity uncontrolled nausea vomiting. Past Medical History Medical History: cancer, diabetes, high cholesterol, hypertension, other (Seizure disorder, history of anxiety and depression) Home Meds Active Scripts Nystatin (Nystatin) 100,000 Unit/1 Ml Oral.susp, 2 ML PO QID for 7 Days, #60 ML Prov:AUGUSTO CALHOUN MD 06/06/18 Reported Medications Levetiracetam* (Levetiracetam*) 500 Mg Tablet, 500 MG PO DAILY, TAB 06/05/18 Empagliflozin (Jardiance) 10 Mg Tablet, 10 MG PO QAM, TAB 06/05/18 Paroxetine Hcl* (Paroxetine*) 20 Mg Tablet, 20 MG PO HS, TAB 05/11/18 Oxazepam* (Oxazepam*) 30 Mg Capsule, 30 MG PO Q8H PRN for ANXIETY, CAP THE ONLY MEDICATION, WICH HELPS HIM WELL. 05/11/18 Discontinued Reported Medications [Janumet 50-850MG] No Conflict Check, 1 TAB PO BID 06/05/18 Dexamethasone* (Dexamethasone*) 4 Mg Tablet, 4 MG PO BID, TAB FOR 7 DAYS,STOP DATE 06/08/18 06/05/18 Diazepam* (Diazepam*) 5 Mg Tablet, 5 MG PO QHS, TAB 06/05/18 Lcohba-Vuctxplv-Tkkeslt* (Elyse SCHWARTZ* 24,000) 24,000 L-76,000-120,000 Unit Caps ul, 1 CAP PO WITH MEALS, CAP 05/11/18 Amlodipine Besylate* (Amlodipine Besylate*) 10 Mg Tablet, 10 MG PO DAILY, #30 TAB 05/11/18 Pravastatin Sodium* (Pravastatin Sodium*) 80 Mg Tablet, 80 MG PO HS, TAB 05/11/18 Sitagliptin* (Januvia*) Unknown Strength Tablet, 0 PO DAILY, #30 TAB 05/11/18 Metformin* (Glucophage*) 850 Mg Tablet, 850 MG PO WITH BREAKFAST, #30 TAB 05/11/18 Discontinued Scripts Dexamethasone* (Dexamethasone* Intensol) 1 Mg/Ml Soln, 4 MG PO BID for 14 Days, ML Prov:AUGUSTO CALHOUN MD 05/13/18 Allergies: Coded Allergies: No Known Allergy (Unverified , 06/09/18) Past Surgical History Past Surgical Hx: other (Unknown patient poor historian) Family History Significant Family History: other (Unknown patient poor historian) Social History Smoking Status: Current some day smoker Drug Use: none Exam/Review of Systems Exam Vitals Vital Signs Date Temp Pulse Resp B/P (MAP) Pulse Ox O2 O2 Flow FiO2 Time Delivery Rate 06/09/18 70 22 106/35 98 Room Air 12:00 (58) 06/09/18 98.4 07:43 Constitutional: frail, other (Confused) Psych: anxiety, confusion Head: normocephalic, atraumatic, other (Anterior without erythema without edema without bleeding.); No lacerations, No hematomas Eyes: nl conjunctiva, EOMI, nl lids, nl sclera, PERRL; No icteric, No fundi, disc, No other ENMT: nl external ears & nose, nl lips & teeth, nl nasal mucosa & septum; No mucosa pink and moist, No intubated, No tympanic membranes, No other Neck: supple, non-tender; No jvd, No bruits, No masses, No thyromegaly, No nuchal rigidity, No other Respiratory: congested cough, crackles/rales, diminished breath sounds, wheezing Cardiovascular: regular rate and rhythm, nl pulses; No bruits, No diastolic murmur, No edema, No gallop, No irregular rhythm, No jugular venous distention (JVD), No murmurs/extra sounds, No rub, No systolic murmur, No S3, No S4, No other Gastrointestinal: soft, nl liver, spleen, non-tender; No ascites, No bowel sounds, No distended, No firm, No hepatomegaly, No mass, No rebound or guarding, No splenomegaly, No surgical scars, No tender, No other Musculoskeletal: No nl extremities to inspection, No nl gait and stance, No joint tenderness, No muscle tone, No muscle weakness, No range of motion, No spine non-tender, No swelling, No other Extremities: No normal pulses, No calf tenderness, No cyanosis, No clubbing, No edema, No pitting pedal edema, No palpable cord, No tenderness, No other Neurological: lethargic, other (Slow to answer questions oriented x3 with difficulty, cranial nerves II through XII grossly intact motor sensory findings grossly within normal limits intact oculocephalics) Results Result Diagram: 06/09/18 0808 06/09/18 0808 Results 24hrs Laboratory Tests Test 06/09/18 08:08 White Blood Count 7.9 # Red Blood Count 4.89 Hemoglobin 15.0 Hematocrit 44.0 Mean Corpuscular Volume 90.0 Mean Corpuscular Hemoglobin 30.7 Mean Corpuscular Hemoglobin Concent 34.1 Red Cell Distribution Width 13.5 Platelet Count 124 #L Mean Platelet Volume 9.6 Immature Granulocytes % 1.900 H Neutrophils % 81.0 H Lymphocytes % 10.3 L Monocytes % 5.4 Eosinophils % 1.0 Basophils % 0.4 Nucleated Red Blood Cells % 0.0 Immature Granulocytes # 0.150 H Neutrophils # 6.4 Lymphocytes # 0.8 Monocytes # 0.4 Eosinophils # 0.1 Basophils # 0.0 Nucleated Red Blood Cells # 0.0 Sodium Level 136 Potassium Level 3.9 Chloride Level 100 Carbon Dioxide Level 30 Anion Gap 6 Blood Urea Nitrogen 24 H Creatinine 0.74 Est Glomerular Filtrat Rate mL/min Glucose Level 187 Calcium Level 9.0 ASHLEY WILLS June 09, 2018 14:10
[2018-06-09 15:51] VITALS: BP 131/62; PULSE 71; RESP 16
== END 2018-06-09 15:55 | disposition home or self-care (01) ==
LOC: E/R 07:38
DX: S00.81XA Abrasion of other part of head, initial encounter (principal); S16.1XXA Strain of muscle, fascia and tendon at neck level, initial encounter; E86.0 Dehydration; C34.90 Malignant neoplasm of unspecified part of unspecified bronchus or lung; I10 Essential (primary) hypertension; F17.210 Nicotine dependence, cigarettes, uncomplicated; R40.2142 Coma scale, eyes open, spontaneous, at arrival to emergency department; R40.2362 Coma scale, best motor response, obeys commands, at arrival to emergency department; R40.2252 Coma scale, best verbal response, oriented, at arrival to emergency department; W01.198A Fall on same level from slipping, tripping and stumbling with subsequent striking against other object, initial encounter; Y92.009 Unspecified place in unspecified non-institutional (private) residence as the place of occurrence of the external cause; Z85.841 Personal history of malignant neoplasm of brain; Z79.84 Long term (current) use of oral hypoglycemic drugs; Z23 Encounter for immunization
CPT/HCPCS: 70450; 72125; 80048; 85025; 90471; 90715; J7120; Z7502